=== PATIENT | male | born 1960 | race Caucasian/White ===

== ENCOUNTER 2017-10-24 20:41 | Observation (INO) ==
--- NOTE | 2017-10-24 21:04 | Emergency Department Note ---
Disposition Clinical Impression: Abdominal distention Abdominal pain Qualifiers: Abdominal location: generalized Qualified Code(s): R10.84 - Generalized abdominal pain Disposition: Admitted As Inpatient Condition: Good Referrals: Janae Ann BATCH OR CONTINUOUS STILL OPERATOR [Advanced Practice Nurse] - Forms: ED Satisfaction Letter, Work/School Release Time of Disposition: 23:36 Abdominal Pain HPI - General Chief Complaint: ED Abdominal Pain Stated Complaint: Abd Pain Time Seen by Provider: 10/24/17 20:47 Source: patient Mode of arrival: ambulatory Limitations: no limitations Nursing Notes Reviewed: Yes Vital Signs Reviewed: Yes - History of Present Illness HPI Narrative: Patient is a 57-year-old male with past medical history of recent C. difficile infection that was diagnosed approximately 2-3 weeks ago at outside facility. Patient states that he had a toe removed and had a PICC line for IV antibiotics. It is believed that he got C. difficile secondary to that. When patient was diagnosed, he had diarrhea, generalized abdominal pain. He states that he has been on oral vancomycin for 8 days and has not had any improvement in his diarrhea or abdominal pain. He also complains of worsening generalized abdominal distention. Denies any other fevers, nausea, vomiting, chest pain, shortness of breath. Denies any known blood in his stool. Pain Scale: 10 - Related Data Allergies Allergy/AdvReac Type Severity Reaction Status Date / Time No Known Allergies Allergy Verified 10/24/17 20:45 All systems ED: reviewed and negative except as stated. Constitutional: Denies: fever Cardiovascular: Denies: chest pain Respiratory: Denies: dyspnea Gastrointestinal: Reports: abdominal pain, diarrhea. Denies: nausea, vomiting, constipation, hematemesis, hematochezia Genitourinary: Denies: urgency, dysuria Neurological: Denies: weakness, numbness, paresthesias Abdominal Pain PMH - Past Medical History Medical history: Reports: diabetes, hypertension Male Surgical History: Reports: cholecystectomy, orthopedic, other Psychiatric history: Reports: no psych history - Social History Smoking status: Never smoker Alcohol use: Reports: none Drug use: Reports: none Physical Exam - General Limitations: no limitations General appearance: alert, in no apparent distress - Head Head exam: atraumatic, normocephalic, normal inspection - Eye Eye exam: Present: normal appearance, PERRL, EOMI - ENT ENT exam: normal exam, normal oropharynx, mucous membranes moist - Chest Chest inspection: Present: normal inspection, symmetric chest wall rise - Respiratory Respiratory exam: Present: normal lung sounds bilaterally - Cardiovascular Cardiovascular exam: Present: normal rhythm, tachycardia, normal heart sounds - Abdominal Exam Abdominal exam: Present: soft, tenderness (Generalized abdominal tenderness), distention (Generalized abdominal distention). Absent: guarding, rebound, rigidity, Villegas's sign, tenderness at McBurney's Point - Extremities Exam Extremities exam: Present: normal inspection, full ROM. Absent: tenderness, pedal edema - Neurological Exam Neurological exam: Present: alert, oriented X3 - Psychiatric Psychiatric exam: Present: normal affect, normal mood - Skin Skin exam: Present: warm, dry, intact, normal color Course Course Narrative: Patient is tachycardic, mildly hypertensive. Otherwise, the rest of the vitals within normal limits. Physical exam shows generalized minimal tenderness and distention. Otherwise, lungs clear to auscultation, heart regular rhythm. We will obtain basic blood work, CT abdomen and pelvis, C. difficile testing. Patient is currently failing outpatient treatment of oral vancomycin for C. difficile. Patient also feels unsafe going home. Will admit after workup for further care. 23:34 CBC and BMP not concerning. Urinalysis negative. CT abdomen and pelvis negative for any acute intra-abdominal process. Patient not comfortable with going home. We will give the patient at maintenance fluids, Zofran, admit for further care. Stool C. difficile and culture still pending. Vital Signs Temperature 97.4 F L 10/24/17 20:42 Pulse Rate 104 10/24/17 20:42 Respiratory Rate 16 10/24/17 20:42 Blood Pressure 138/98 10/24/17 20:42 O2 Sat by Pulse Oximetry 99 10/24/17 20:42 Temperature 97.4 F L 10/24/17 20:42 Pulse Rate 103 10/24/17 23:21 Respiratory Rate 16 10/24/17 23:21 Blood Pressure 116/72 10/24/17 23:21 O2 Sat by Pulse Oximetry 96 10/24/17 23:21 Oxygen Delivery Oxygen Delivery Room Air Abdominal Pain - MDM Narrative Medical decision making narrative: Patient is tachycardic, mildly hypertensive. Otherwise, the rest of the vitals within normal limits. Physical exam shows generalized minimal tenderness and distention. Otherwise, lungs clear to auscultation, heart regular rhythm. We will obtain basic blood work, CT abdomen and pelvis, C. difficile testing. Patient is currently failing outpatient treatment of oral vancomycin for C. difficile. Patient also feels unsafe going home. Will admit after workup for further care. 23:34 CBC and BMP not concerning. Urinalysis negative. CT abdomen and pelvis negative for any acute intra-abdominal process. Patient not comfortable with going home. We will give the patient at maintenance fluids, Zofran, admit for further care. Stool C. difficile and culture still pending. - Medical Records Medical records reviewed: Yes I reviewed the patient's medical records. - Lab Data Lab results reviewed: Yes I reviewed the patient's lab results. Result diagrams: 10/24/17 21:16 10/24/17 21:16 Lab Results 10/24/17 10/24/17 10/24/17 Range/Units 21:16 21:16 21:43 WBC 6.1 (4.3-11.1) K/mcL RBC 5.10 (4.19-5.50) M/mcL Hgb 14.6 (12.9-16.9) g/dL Hct 41.9 (37.5-50.1) % MCV 82.2 L (83.0-100.0) fL MCH 28.6 (28.0-33.3) pg MCHC 34.8 (31.6-35.5) g/dL RDW 14.0 (11.5-14.5) % Plt Count 154 (140-400) K/mcL MPV 10.1 (9.4-12.4) fL Immature Gran % 0.3 (0-4) % Seg Neutrophils % 52.0 % Lymphocytes % 29.9 % Monocytes % 10.7 % Eosinophils % 6.4 % Basophils % 0.7 % Neutrophils # 3.2 (1.6-8.9) K/mcL Lymphocytes # 1.8 (0.6-4.6) K/mcL Monocytes # 0.7 (0.0-1.3) K/mcL Eosinophils # 0.4 (0.0-0.6) K/mcL Basophils # 0.0 (0.0-0.2) K/mcL Sodium 133 L (136-145) mEq/L Potassium 3.7 (3.5-5.1) mEq/L Chloride 101 (98-107) mEq/L Carbon Dioxide 23 (23-29) mEq/L BUN 24 H (6-20) mg/dL Creatinine 1.30 (0.70-1.30) mg/dL Est GFR ( Amer) > 60 (> 60) Est GFR (Non-Af Amer) 56 L (> 60) BUN/Creatinine Ratio 18 (6-26) Glucose 301 H (70-105) mg/dL Calculated Osmolality 291 (280-300) Calcium 9.0 (8.6-10.3) mg/dL Total Bilirubin 0.6 (0.3-1.0) mg/dL Direct Bilirubin 0.1 (0.0-0.2) mg/dL Indirect Bilirubin 0.5 (0.0-1.2) mg/dL AST 20 (13-39) Units/L ALT 33 (7-52) Units/L Alkaline Phosphatase 81 (34-104) Units/L Serum Total Protein 7.1 (6.4-8.9) g/dL Albumin 4.2 (3.5-5.7) g/dL Globulin 2.9 (2.4-3.5) g/dL Albumin/Globulin Ratio 1.4 (1.1-2.2) Lipase 42 (11-82) Units/L Urine Color Yellow (Yellow) Urine Clarity Clear (Clear) Urine pH 5.5 (5.0-8.0) pH Units Ur Specific [place] 1.030 H (1.010-1.025) Urine Protein Negative (Neg-Trace) mg/dL Urine Glucose (UA) >=1000 H (Normal) mg/dL Urine Ketones Negative (Negative) mg/dL Urine Blood Negative (Negative) Urine Nitrite Negative (Negative) Urine Bilirubin Negative (Negative) Urine Urobilinogen Normal (Normal) mg/dL Ur Leukocyte Esterase Negative (Negative) Ur Culture Indicated? NO (NO) - Radiology Data Radiology results reviewed: Yes I reviewed the patient's radiology results. Abdomen/Pelvis CT 10/24/17 21:02 IMPRESSION: No definite acute finding in the abdomen or pelvis. Moderate descending and sigmoid colon diverticulosis with no evidence of diverticulitis. There is no mural thickening to suggest acute colitis. D/ / Hilton Covarrubias MD / Hilton Covarrubias MD Interpreting Provider: Hilton Covarrubias MD ana - Joselyn Situation: Demographics, MOA Background: Presenting Complaint, Relevant PMH, Meds, & Allergies Assessment: Vital Signs, Course and respsone to treatment, Exam Concerns, Patient/Family Expectation, Pertinant Lab Results, Outstanding Labs Recommendation: Barrier(s) to disposition, Recommendation based on pending studies, treatments, or consults Joselyn Report Given to: Dr. Poonam Alves Repor Time: 23:36 Attestation Statement - Attestation Attestation: I examined this patient and my medical decision-making was reviewed with the Resident Physician. I agree with the documented findings, disposition and treatment plan as described except to the extent set forth below. Possible worsening C. difficile infection. Plan on admitting. We will start IV fluids, obtain CT scan to rule out toxic megacolon. Disposition is admission to the hospital for further evaluation.
[2017-10-24 21:29] LABS: Basophils % 0.7 %; Eosinophils # 0.4 K/mcL (0.0-0.6); Eosinophils % 6.4 %; Hematocrit 41.9 % (37.5-50.1); Hemoglobin 14.6 g/dL (12.9-16.9); Immature Granulocytes % 0.3 % (0-4); Lymphocytes # 1.8 K/mcL (0.6-4.6); Lymphocytes % 29.9 %; Mean Corpuscular HGB Conc 34.8 g/dL (31.6-35.5); Mean Corpuscular Hemoglobin 28.6 pg (28.0-33.3); Mean Corpuscular Volume 82.2 fL (83.0-100.0); Mean Platelet Volume 10.1 fL (9.4-12.4); Monocytes # 0.7 K/mcL (0.0-1.3); Monocytes % 10.7 %; Neutrophils # 3.2 K/mcL (1.6-8.9); Platelet Count 154 K/mcL (140-400)
[2017-10-24 21:49] LABS: Alanine Aminotransferase 33 Units/L (7-52); Albumin 4.2 g/dL (3.5-5.7); Albumin/Globulin Ratio 1.4 (1.1-2.2); Alkaline Phosphatase 81 Units/L (34-104); Aspartate Amino Transferase 20 Units/L (13-39); BUN/Creatinine Ratio 18 (6-26); Bilirubin,Direct 0.1 mg/dL (0.0-0.2); Bilirubin,Indirect 0.5 mg/dL (0.0-1.2); Bilirubin,Total 0.6 mg/dL (0.3-1.0); Blood Urea Nitrogen 24 mg/dL (6-20); Carbon Dioxide 23 mEq/L (23-29); Chloride 101 mEq/L (98-107); Globulin 2.9 g/dL (2.4-3.5); Glucose 301 mg/dL (70-105); Lipase 42 Units/L (11-82); Osmolality,Calculated 291 (280-300); Potassium 3.7 mEq/L (3.5-5.1); Sodium 133 mEq/L (136-145); Total Protein 7.1 g/dL (6.4-8.9); eGFR For African Americans > 60 (> 60); eGFR For Non-African Americans 56 (> 60)
[2017-10-24 22:01] LABS: Bilirubin,Urine Negative (Negative); Clarity,Urine Clear (Clear); Color,Urine Yellow (Yellow); Glucose,Urine (UA) >=1000 mg/dL (Normal); Ketones,Urine Negative (Negative)
[2017-10-24 22:02] LABS: Blood,Urine Negative (Negative); Leukocyte Esterase,Urine Negative (Negative); Nitrite,Urine Negative (Negative); PH,Urine 5.5 pH Units (5.0-8.0); Protein,Urine Negative (Neg-Trace); Urobilinogen,Urine Normal (Normal)
[2017-10-24] MEDS ORDERED: Ondansetron 4 MG/2 ML VIAL IVP ONE (23:29)
[2017-10-24] MEDS ORDERED: 0.9 % Sodium Chloride 1,000 ML ONE (23:31)
[2017-10-24] MEDS: 0.9 % Sodium Chloride 1,000 ML IVC SCH (23:33)
[2017-10-25] MEDS ORDERED: Naloxone 0.4 MG/ML INJ IVP PRN
[2017-10-25] MEDS ORDERED: *HR* Dextrose 50 % in Water (Syg) 50 ML SYRINGE IVP PRN (00:07)
[2017-10-25] MEDS ORDERED: D5% in Water 1,000 ML IVC PRN (00:07)
[2017-10-25] MEDS ORDERED: Dextrose Gel 15 GM/37.5 ML TUBE PO PRN ×2 (00:07)
--- NOTE | 2017-10-25 00:07 | Internal Med History&Physical ---
Date of Encounter: 10/25/17 Time of Encounter: 00:06 Assessment and Plan (1) Diarrhea Current visit: Yes Status: Acute c.diff until proven otherwise repeat C.diff testing empiric dificid probiotics IVF Qualifiers: Diarrhea type: infectious Qualified Code(s): A09 - Infectious gastroenteritis and colitis, unspecified (2) Abdominal distention Current visit: Yes Status: Acute likely related to etiology causing diarrhea (3) Abdominal pain Current visit: Yes Status: Acute likely related to etiology causing diarrhea Qualifiers: Abdominal location: generalized Qualified Code(s): R10.84 - Generalized abdominal pain (4) HTN (hypertension) Current visit: Yes Status: Acute hold BP med (he also doesn't remember what he uses) due to normal BP Qualifiers: Hypertension type: essential hypertension Qualified Code(s): I10 - Essential (primary) hypertension (5) DMII (diabetes mellitus, type 2) Current visit: Yes Status: Acute hold oral agent. ISS for now Qualifiers: Qualified Code(s): E11.9 - Type 2 diabetes mellitus without complications Internal Medicine - H&P: HPI Chief complaint: abdo pain , diarrhea History of present illness: Mr. Mandujano is a 57 year old male with hx of recently treated C.diff who presents with Abdo pain, persistent diarrhea after completing a course of PO vanco - admitted with suspicion for refractory c.diff He has hx of HTN (does not remember meds) and DMII on glipizide. Events started 4 months ago where it was reported he had a left big toe infection that was treated surgery at [facility]. He later had a PICC and placed on 2 -3 months of IV vanco - likely for osteomyelitis therapy ? based on his treatment description. Approx 4 weeks ago, he was hospitalized at [facility] for diarrhea where he was dx with C.diff, initially got flagyl but was discharged on PO vanco - likely 125 QID which he completed. Since completion of therapy, he is experiencing refractory diarrhea up to 5 x daily, watery. Food making it worse. Associated with radames-umbilical, lower abdo cramps. CT/CT abd pelvis w iv no oral IMPRESSION: No definite acute finding in the abdomen or pelvis. Moderate descending and sigmoid colon diverticulosis with no evidence of diverticulitis. There is no mural thickening to suggest acute colitis. Past Med Surg Social Fam HX - Past Medical History Medical history: diabetes, hypertension Psychiatric history: no psych history - Past Surgical History Surgical History: other (left toe surgery) - Social History Smoking Status: Never smoker Alcohol use: none Drug use: none - Additional Family History Additional family history: HTN Internal Medicine - H&P: Meds 3 Allergy/AdvReac Type Severity Reaction Status Date / Time No Known Allergies Allergy Verified 10/24/17 20:45 All Systems PM: A 10-system review of systems was performed and is negative for pertinent findings except as documented above in the HPI. Review of systems: ROS 14 point review of systems reviewed as best as possible given presentation. Pertinent positive or negative as per HPI or otherwise reviewed as negative - Constitutional Vitals: Temp Pulse Resp BP Pulse Ox 97.4 F L 103 16 116/72 96 10/24/17 20:42 10/24/17 23:21 10/24/17 23:21 10/24/17 23:21 10/24/17 23:21 Exam: General - AAO x 3 Psych - Appropriate affect/speech. No agitation Eyes - IWONA. Eye lids intact. No scleral icterus Heart - Sinus. RRR. S1 and S2 present. No added HS/murmurs appreciated. No elevated JVD appreciated. Lung - Adequate air entry b/l, No crackles/wheezes appreciated GI - Soft, lower abdo bloating, discomfort, No G/R. No hepatosplenomegaly/ ascites. BS+ - No CVA/suprapubic tenderness or palpable bladder distension Skin - Intact. No rash/petechiae/ecchymosis. Warm extremities Internal Med - H&P Results - Labs CBC & Chem 7: 10/24/17 21:16 10/24/17 21:16
[2017-10-25] MEDS: Fidaxomicin 200 MG TABLET PO SCH ×2 (00:54→08:21)
[2017-10-25] MEDS: Lactobacillus 1 EACH CAP.SPRINK PO SCH ×3 (02:37→22:02)
[2017-10-25 04:41] LABS: Basophils # 0.1 K/mcL (0.0-0.2); Eosinophils # 0.4 K/mcL (0.0-0.6); Eosinophils % 8.3 %; Hematocrit 38.3 % (37.5-50.1); Hemoglobin 13.3 g/dL (12.9-16.9); Immature Granulocytes % 0.4 % (0-4); Lymphocytes # 1.9 K/mcL (0.6-4.6); Lymphocytes % 37.4 %; Mean Corpuscular HGB Conc 34.7 g/dL (31.6-35.5); Mean Corpuscular Hemoglobin 28.4 pg (28.0-33.3); Mean Corpuscular Volume 81.7 fL (83.0-100.0); Mean Platelet Volume 10.5 fL (9.4-12.4); Monocytes # 0.6 K/mcL (0.0-1.3); Monocytes % 10.9 %; Neutrophils # 2.2 K/mcL (1.6-8.9); Platelet Count 137 K/mcL (140-400); Red Blood Count 4.69 M/mcL (4.19-5.50); Red Cell Distribution Width 13.9 % (11.5-14.5)
[2017-10-25] MEDS: Insulin LISPRO 300 UNITS/3 ML VIAL SQ SCH ×3 (08:21→17:42)
--- NOTE | 2017-10-25 09:13 | Event Note ---
Date of Encounter: 10/25/17 Time of Encounter: 08:30 Seen and examined at bedside. Patient is a 18, information obtained from chart review and patient report. Says she was recently discharged from [facility] where he was treated for C. difficile. He has been home for approximately one month and is complaining of persistent abdominal pain, distention and loose stool. Abdominal pain worse with eating and worse with not eating. No loose stools since admission. 1. C. difficile: Patient reports recently diagnosed with C. difficile at [facility], on oral vanco at home. Symptomatic with abdominal pain and loose stools. No patient has not had bowel movement since presentation. Continue empiric deficits, probiotics. Stool for C. difficile pending. 2. Abdominal pain: With associated distention/bloating. Abdomen/pelvis CT with sigmoid diverticulosis, no evidence of diverticulitis, no mural thickening to suggest acute colitis; otherwise nonacute. Patient reports significant abdominal bloating, worse than baseline. KUB pending. 3. Left foot osteomyelitis; details unclear but apparently was admitted at [facility] for left foot surgery and was on long-term IV ATB. Left foot appears to have mild cellulitic appearance. Lfet foot x-ray pending. [facility] records requested
[2017-10-25 09:50] LABS: BUN/Creatinine Ratio 19 (6-26); Blood Urea Nitrogen 21 mg/dL (6-20); Calcium 8.9 mg/dL (8.6-10.3); Carbon Dioxide 24 mEq/L (23-29); Chloride 103 mEq/L (98-107); Glucose 260 mg/dL (70-105); Magnesium 1.8 mg/dL (1.6-2.6); Osmolality,Calculated 290 (280-300); Potassium 3.9 mEq/L (3.5-5.1); Sodium 134 mEq/L (136-145); eGFR For African Americans > 60 (> 60); eGFR For Non-African Americans > 60 (> 60)
[2017-10-25] MEDS: 0.9 % Sodium Chloride 1,000 ML IVC SCH (14:45)
[2017-10-25] MEDS: *HR* Heparin 5,000 UNIT/ML VIAL SQ SCH ×2 (14:46→22:03)
[2017-10-25] MEDS: Vancomycin Oral Soln 250 MG/5 ML UDC PO SCH ×2 (17:41→22:01)
[2017-10-25] MEDS ORDERED: Insulin LISPRO 300 UNITS/3 ML VIAL SQ SCH (21:00)
[2017-10-25] MEDS: Gabapentin 400 MG CAPSULE PO SCH (23:19)
[2017-10-25] MEDS: *HR* OxyCODONE/APAP 10/325 TABLET PO SCH (23:19)
[2017-10-26] MEDS: 0.9 % Sodium Chloride 1,000 ML IVC SCH ×2 (02:11→02:12)
[2017-10-26] MEDS: *HR* Heparin 5,000 UNIT/ML VIAL SQ SCH ×2 (06:20→14:30)
[2017-10-26] MEDS: Insulin LISPRO 300 UNITS/3 ML VIAL SQ SCH ×3 (08:08→17:07)
[2017-10-26] MEDS: Gabapentin 400 MG CAPSULE PO SCH ×3 (08:09→17:08)
[2017-10-26] MEDS: Vancomycin Oral Soln 250 MG/5 ML UDC PO SCH ×2 (08:09→14:31)
[2017-10-26] MEDS: Lactobacillus 1 EACH CAP.SPRINK PO SCH (08:10)
[2017-10-26] MEDS: *HR* OxyCODONE/APAP 10/325 TABLET PO SCH (08:10)
--- NOTE | 2017-10-26 13:38 | Discharge Summary ---
Date of Encounter: 10/26/17 Time of Encounter: 13:32 - Discharge Diagnosis (1) C. difficile diarrhea Priority: Primary Status: Acute Comments: Recurrent. Patient reports 2 episodes of C. difficile and 08/2017 and again 2017. Most recently treated with oral vancomycin after discharge from [facility]. Presents with recurrent abdominal pain and loose stool. Afebrile, no elevated WBC. Lactic acid normal. ABD CT with diverticulosis, no evidence of diverticulitis or acute colitis. Of note, patient reports that loose stool comes and goes; says he may have 4-5 loose stools in a day and then go 1 or 2 days without loose stool. Given recent significant history of C. difficile, continue to treat empirically with oral vancomycin. Stop home PPI. He may benefit from dificid and/or fecal transplant. (2) Osteomyelitis Priority: Primary Status: Acute Comments: per hx. Details unclear but he apparenyl hours with podiatry at [facility]. 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 [facility] records indicates he was recommended to have an amputation and patient declined. S/p I&D [facility] in 07/[address] Vieira followed by long-term IV ATB. Was evaluated at [facility] 10/05/2017 by podiatry who did not recommend further ATB's or surgical intervention as patient had stable ulcer on medial aspect of left hallux. Left foot with cellulitic appearance on admission. 10/25/17 MRI discerning for osteomyelitis first metatarsal, erosive changes involving first MTP compatible with Pinch and septic osteo-arthritis and diffuse subcutaneous edema compatible with cellulitis. Afebrile, no elevated WBC. Asymptomatic with cellulitic appearance ; worsening erythema and drainage from admission. 07/2017 cultures with Pseudomonas and Proteus; both sensitive to Zosyn. Start Zosyn, plan to transfer to [facility] once bed available. Qualifiers: Osteomyelitis type: subacute Osteomyelitis location: foot Laterality: left Qualified Code(s): M86.272 - Subacute osteomyelitis, left ankle and foot (3) DMII (diabetes mellitus, type 2) Priority: Secondary Status: Chronic Comments: History uncontrolled diabetes. 05/2017 Hgb A1c 10.4%. Likely secondary to dietary noncompliance. Continue home medication regimen. Qualifiers: Diabetes mellitus complication status: without complication Diabetes mellitus correction insulin use: with correction use Qualified Code(s): E11.9 - Type 2 diabetes mellitus without complications; Z79.4 - shelter (current) use of insulin; Z79.4 - shelter (current) use of insulin; Z79.4 - bed bug exterminator ( current) use of insulin; Z79.4 - bed bug exterminator (current) use of insulin (4) HTN (hypertension) Priority: Secondary Status: Chronic Comments: per hx. controlled. Continue home BP medications Qualifiers: Hypertension type: essential hypertension Qualified Code(s): I10 - Essential (primary) hypertension - Discharge Medications Prescriptions: Piperacillin/Tazobactam [Zosyn] 3.375 gm IVPB Q8HR #30 vial Home Medications: Gabapentin [Neurontin] 800 mg PO QID 10/25/17 [History] Insulin Glargine,Hum.rec.anlog [Lantus Solostar] 25 unit SQ Q12H 10/25/17 [ History] Lisinopril [Zestril] 5 mg PO BID 10/25/17 [History] Oxycodone HCl/Acetaminophen [Percocet 10-325 mg Tablet] 1 tab PO BID 10/25/17 [ History] Zolpidem [Ambien] 10 mg PO HS 10/25/17 [History] Dicyclomine [Bentyl] 20 mg PO Q6H PRN capsule 10/26/17 [Rx] Heparin 5,000 unit SQ Q8HCO vial 10/26/17 [Rx] Lactobacillus [Culturelle] 1 each PO BID cap.sprink 10/26/17 [Rx] Piperacillin/Tazobactam [Zosyn] 3.375 gm IVPB Q8HR #30 vial 10/26/17 [Rx] Vancomycin Oral Soln [Vancocin] 125 mg PO QID udc 10/26/17 [Rx] Allergies/Adverse Reactions: 3 Allergy/AdvReac Type Severity Reaction Status Date / Time No Known Allergies Allergy Verified 10/24/17 20:45 Procedures/tests Complete & Pending: Procedures Performed prior 72 hours Category Date Time Status MR foot LT wo/w con [MR] Stat MRI 10/25/17 12:07 Completed Date of admission: 10/24/17 23:51 Primary care physician: Estefania Xie, Discharging clinician: Monik Lindo Anticipated date of discharge: 10/26/17 - Patient Status Disposition: Transfer Other Condition: Good Functional capacity at discharge: uses cane/walker Overall status at discharge: patient is not back to baseline - Discharge Instructions Follow Up With: Estefania Xie MD [Primary Care Provider] - - Diet and Activity Activity: as per physical therapy Diet: diabetic diet Interval History: Seen and examined at bedside. Patient still with complaint of abdominal pain, he has not had any stool since arrival. Abdominal pain is constant and worse with eating however he says it is worse if he does not eat as well. Discuss MRI findings of left foot and concerning for osteomyelitis. Patient reports to now to second toe on left foot fell off a couple weeks ago and has progressively gotten worse. Reports she expressed a large amount of purulent material from it yesterday. He is agreeable to transfer to [facility]. Discussed with [facility] transfer center and 07/2017 wound cultures with Proteus and Pseudomonas , sensitive to Zosyn. Patient has been accepted to [facility] and will be transferred once bed is available. Hospital course: See assessment and plan for hospital course - Time Spent with Patient Total time spent providing and/or coordinating discharge services: - Constitutional Vitals: Temp Pulse Resp BP Pulse Ox 98.1 F 97 18 131/84 96 10/26/17 11:11 10/26/17 11:11 10/26/17 11:11 10/26/17 11:11 10/26/17 11:11 General appearance: Present: A&O X 3, morbidly obese - Head Head exam: Present: atraumatic, normocephalic - Eye Eye exam: Present: PERRL, conjuntiva pink, sclera anicteric Pupils: Present: PERRL - Neck Neck exam general surgery: Present: supple, trachea midline. Absent: lymphadenopathy - Respiratory Respiratory exam: Present: CTAB. Absent: accessory muscle use, rales, rhonchi, wheezes - Cardiovascular Cardiovascular exam: Present: RRR, +S1, +S2. Absent: diastolic murmur, gallop, rubs, systolic murmur - GI/Abdominal GI/Abdominal exam: Present: normal bowel sounds, soft, tenderness, no peritoneal signs. Absent: distended - Extremities Exam Extremities exam: Present: warm, radial pulses palpable and symmetrical. Absent : calf tenderness, cyanotic, pedal edema - Expanded Lower Extremities Exam Foot/Toe exam: Present: amputation, swelling, tenderness - Neurological Exam Neurological exam: Present: CN II-XII intact, oriented X3, no focal deficits. Absent: pronater drift, facial droop, speech deficit - Skin Skin exam: Present: dry, intact
[2017-10-26 15:18] VITALS: BP 146/93
== END 2017-10-26 18:45 | disposition other institution (70) ==
LOC: 3ANU 20:41 → EMEROO 20:41 → 3ANU 10-25 00:05
PROVIDERS: ADMIT Internal Medicine Hematology & Oncology; ATTEND Internal Medicine

== ENCOUNTER 2020-07-30 10:22 | Inpatient (IN) ==
[2020-07-30 10:59] LABS: Basophils # 0.1 K/mcL (0.0-0.2); Basophils % 0.7 %; Eosinophils # 0.4 K/mcL (0.0-0.6); Eosinophils % 5.1 %; Hematocrit 38.7 % (37.5-50.1); Hemoglobin 12.6 g/dL (12.9-16.9); Immature Granulocytes % 0.4 % (0-4); Lymphocytes # 1.4 K/mcL (0.6-4.6); Lymphocytes % 20.1 %; Mean Corpuscular HGB Conc 32.6 g/dL (31.6-35.5); Mean Corpuscular Hemoglobin 27.4 pg (28.0-33.3); Mean Corpuscular Volume 84.1 fL (83.0-100.0); Mean Platelet Volume 9.8 fL (9.4-12.4); Monocytes # 0.7 K/mcL (0.0-1.3); Monocytes % 9.3 %; Neutrophils # 4.5 K/mcL (1.6-8.9); Platelet Count 245 K/mcL (140-400); Red Cell Distribution Width 14.8 % (11.5-14.5); Segmented Neutrophils % 64.4 %
[2020-07-30] MEDS ORDERED: 0.9 % Sodium Chloride 1,000 ML IVC ONE (11:07)
[2020-07-30 11:16] LABS: BUN/Creatinine Ratio 14 (6-26); Blood Urea Nitrogen 18 mg/dL (8-23); C-Reactive Protein 46 mg/L (Less than 10); Calcium 9.6 mg/dL (8.6-10.3); Carbon Dioxide 27 mEq/L (23-29); Chloride 98 mEq/L (98-107); Glucose 350 mg/dL (70-105); Osmolality,Calculated 292 (280-300); Potassium 4.2 mEq/L (3.5-5.1); Sodium 133 mEq/L (136-145); eGFR For African Americans > 60 (> 60); eGFR For Non-African Americans 55 (> 60)
[2020-07-30] MEDS ORDERED: Piperacillin/Tazobactam 3.375 GM in 0.9 % Sodium Chloride Mini Bag 100 ML IVPB ONE (11:38)
[2020-07-30] MEDS ORDERED: *HR* FentaNYL (PF) 100 MCG/2 ML VIAL IVP ONE (11:45)
[2020-07-30] MEDS ORDERED: Vancomycin 1,500 MG/265 ML IV.SOLN IVPB ONE (12:00)
[2020-07-30] MEDS ORDERED: Ondansetron 4 MG/2 ML VIAL IVP PRN (12:23)
[2020-07-30] MEDS ORDERED: Dextrose Gel 15 GM/37.5 ML TUBE PO PRN ×2 (13:05)
[2020-07-30] MEDS ORDERED: *HR* Dextrose 50 % in Water (Vial) 50 ML VIAL IVP PRN (13:05)
[2020-07-30] MEDS ORDERED: D5% in Water 1,000 ML IVC PRN (13:05)
[2020-07-30] MEDS: Acetaminophen 325 MG TABLET PO PRN (15:23)
[2020-07-30] MEDS: Gabapentin 300 MG CAPSULE PO SCH ×2 (15:23→20:47)
[2020-07-30] MEDS: *HR* OxyCODONE/APAP 10/325 TABLET PO PRN ×2 (16:17→21:05)
[2020-07-30] MEDS: *HR* Heparin 5,000 UNIT/ML VIAL SQ SCH (16:17)
[2020-07-30] MEDS: Insulin LISPRO 300 UNITS/3 ML VIAL SQ SCH ×2 (16:34→21:08)
[2020-07-30] MEDS: Piperacillin/Tazobactam 3.375 GM in 0.9 % Sodium Chloride Mini Bag 100 ML IVPB SCH (18:47)
[2020-07-31] MEDS: Vancomycin 1,500 MG/265 ML IV.SOLN IVPB SCH ×2 (01:32→12:11)
[2020-07-31] MEDS: *HR* OxyCODONE/APAP 10/325 TABLET PO PRN ×4 (01:40→22:26)
[2020-07-31 02:38] LABS: Hematocrit 34.4 % (37.5-50.1); Hemoglobin 11.1 g/dL (12.9-16.9); Mean Corpuscular HGB Conc 32.3 g/dL (31.6-35.5); Mean Corpuscular Hemoglobin 27.6 pg (28.0-33.3); Mean Corpuscular Volume 85.6 fL (83.0-100.0); Mean Platelet Volume 10.1 fL (9.4-12.4); Platelet Count 198 K/mcL (140-400); Red Blood Count 4.02 M/mcL (4.19-5.50); Red Cell Distribution Width 14.6 % (11.5-14.5); White Blood Count 4.4 K/mcL (4.3-11.1)
[2020-07-31 02:52] LABS: BUN/Creatinine Ratio 15 (6-26); Blood Urea Nitrogen 19 mg/dL (8-23); Calcium 8.6 mg/dL (8.6-10.3); Carbon Dioxide 27 mEq/L (23-29); Chloride 100 mEq/L (98-107); Glucose 314 mg/dL (70-105); Magnesium 1.6 mg/dL (1.6-2.6); Osmolality,Calculated 290 (280-300); Potassium 4.1 mEq/L (3.5-5.1); Sodium 133 mEq/L (136-145); eGFR For African Americans > 60 (> 60); eGFR For Non-African Americans 59 (> 60)
[2020-07-31] MEDS: Piperacillin/Tazobactam 3.375 GM in 0.9 % Sodium Chloride Mini Bag 100 ML IVPB SCH ×2 (04:47→10:45)
[2020-07-31] MEDS: Gabapentin 300 MG CAPSULE PO SCH ×4 (08:17→22:26)
[2020-07-31] MEDS: *HR* Heparin 5,000 UNIT/ML VIAL SQ SCH ×2 (08:18→17:51)
[2020-07-31] MEDS: lisinopriL 5 MG TABLET PO SCH (08:18)
[2020-07-31] MEDS: Insulin LISPRO 300 UNITS/3 ML VIAL SQ SCH ×4 (08:27→22:31)
[2020-07-31] MEDS: Sennosides/Docusate Sodium TABLET PO SCH ×2 (10:45→22:26)
[2020-08-01] MEDS: Vancomycin 1,500 MG/265 ML IV.SOLN IVPB SCH ×2 (01:00→11:08)
[2020-08-01] MEDS: *HR* OxyCODONE/APAP 10/325 TABLET PO PRN ×5 (02:36→22:26)
[2020-08-01] MEDS: *HR* Heparin 5,000 UNIT/ML VIAL SQ SCH ×2 (06:44→17:15)
[2020-08-01] MEDS: Sennosides/Docusate Sodium TABLET PO SCH ×2 (08:34→21:06)
[2020-08-01] MEDS: Gabapentin 300 MG CAPSULE PO SCH ×4 (08:34→21:06)
[2020-08-01] MEDS: lisinopriL 5 MG TABLET PO SCH (08:34)
[2020-08-01] MEDS: Insulin LISPRO 300 UNITS/3 ML VIAL SQ SCH ×4 (08:36→21:06)
[2020-08-01] MEDS: Acetaminophen 325 MG TABLET PO PRN (21:06)
[2020-08-02] MEDS: Vancomycin 1,500 MG/265 ML IV.SOLN IVPB SCH (00:25)
[2020-08-02] MEDS: *HR* Heparin 5,000 UNIT/ML VIAL SQ SCH ×2 (06:13→17:16)
[2020-08-02] MEDS: *HR* OxyCODONE/APAP 10/325 TABLET PO PRN ×4 (06:17→23:49)
[2020-08-02] MEDS: Gabapentin 300 MG CAPSULE PO SCH ×4 (07:40→20:07)
[2020-08-02] MEDS: Sennosides/Docusate Sodium TABLET PO SCH ×2 (07:40→20:07)
[2020-08-02] MEDS: lisinopriL 5 MG TABLET PO SCH (07:40)
[2020-08-02] MEDS: Insulin LISPRO 300 UNITS/3 ML VIAL SQ SCH ×4 (07:41→20:07)
[2020-08-02] MEDS ORDERED: methylPREDNISolone 125 MG/2 ML VIAL IVP ONE (10:59)
[2020-08-02 12:48] LABS: BUN/Creatinine Ratio 15 (6-26); Blood Urea Nitrogen 20 mg/dL (8-23); Carbon Dioxide 29 mEq/L (23-29); Chloride 99 mEq/L (98-107); Glucose 346 mg/dL (70-105); Osmolality,Calculated 292 (280-300); Potassium 4.6 mEq/L (3.5-5.1); Sodium 133 mEq/L (136-145); eGFR For African Americans > 60 (> 60); eGFR For Non-African Americans 53 (> 60)
[2020-08-03 01:23] LABS: BUN/Creatinine Ratio 19 (6-26); Blood Urea Nitrogen 25 mg/dL (8-23); Calcium 9.2 mg/dL (8.6-10.3); Carbon Dioxide 24 mEq/L (23-29); Chloride 99 mEq/L (98-107); Glucose 351 mg/dL (70-105); Osmolality,Calculated 290 (280-300); Potassium 4.6 mEq/L (3.5-5.1); Sodium 131 mEq/L (136-145); eGFR For African Americans > 60 (> 60); eGFR For Non-African Americans 54 (> 60)
[2020-08-03] MEDS: *HR* Heparin 5,000 UNIT/ML VIAL SQ SCH ×2 (05:48→16:20)
[2020-08-03] MEDS: *HR* OxyCODONE/APAP 10/325 TABLET PO PRN ×3 (05:48→18:49)
[2020-08-03] MEDS: lisinopriL 5 MG TABLET PO SCH (08:12)
[2020-08-03] MEDS: Gabapentin 300 MG CAPSULE PO SCH ×4 (08:12→20:00)
[2020-08-03] MEDS: Sennosides/Docusate Sodium TABLET PO SCH ×2 (08:12→20:00)
[2020-08-03] MEDS: Insulin LISPRO 300 UNITS/3 ML VIAL SQ SCH ×4 (08:16→20:00)
[2020-08-03] MEDS ORDERED: MethylPREDNISolone 40 MG/ML VIAL IVP ONE (13:28)
[2020-08-04] MEDS: *HR* OxyCODONE/APAP 10/325 TABLET PO PRN ×5 (02:18→21:52)
[2020-08-04] MEDS: *HR* Heparin 5,000 UNIT/ML VIAL SQ SCH ×2 (05:22→17:11)
[2020-08-04] MEDS: Sennosides/Docusate Sodium TABLET PO SCH ×2 (08:35→20:28)
[2020-08-04] MEDS: Gabapentin 300 MG CAPSULE PO SCH ×4 (08:35→20:28)
[2020-08-04] MEDS: lisinopriL 5 MG TABLET PO SCH (08:35)
[2020-08-04] MEDS: Insulin LISPRO 300 UNITS/3 ML VIAL SQ SCH ×4 (08:36→20:29)
[2020-08-04 09:41] LABS: BUN/Creatinine Ratio 24 (6-26); Blood Urea Nitrogen 35 mg/dL (8-23); Calcium 9.6 mg/dL (8.6-10.3); Carbon Dioxide 28 mEq/L (23-29); Chloride 100 mEq/L (98-107); Glucose 236 mg/dL (70-105); Magnesium 1.9 mg/dL (1.6-2.6); Osmolality,Calculated 298 (280-300); Potassium 3.9 mEq/L (3.5-5.1); Sodium 136 mEq/L (136-145); eGFR For African Americans > 60 (> 60); eGFR For Non-African Americans 50 (> 60)
[2020-08-04 09:48] LABS: Hematocrit 41.2 % (37.5-50.1); Hemoglobin 13.2 g/dL (12.9-16.9); Mean Corpuscular Hemoglobin 27.1 pg (28.0-33.3); Mean Corpuscular Volume 84.6 fL (83.0-100.0); Mean Platelet Volume 10.3 fL (9.4-12.4); Platelet Count 287 K/mcL (140-400); Red Blood Count 4.87 M/mcL (4.19-5.50); Red Cell Distribution Width 14.7 % (11.5-14.5); White Blood Count 7.2 K/mcL (4.3-11.1)
[2020-08-05 01:23] LABS: Hematocrit 38.3 % (37.5-50.1); Hemoglobin 12.7 g/dL (12.9-16.9); Mean Corpuscular HGB Conc 33.2 g/dL (31.6-35.5); Mean Corpuscular Hemoglobin 28.4 pg (28.0-33.3); Mean Corpuscular Volume 85.7 fL (83.0-100.0); Mean Platelet Volume 10.1 fL (9.4-12.4); Platelet Count 237 K/mcL (140-400); Red Blood Count 4.47 M/mcL (4.19-5.50); Red Cell Distribution Width 14.8 % (11.5-14.5); White Blood Count 5.7 K/mcL (4.3-11.1)
[2020-08-05 01:46] LABS: Calcium 8.8 mg/dL (8.6-10.3); Potassium 4.2 mEq/L (3.5-5.1)
[2020-08-05] MEDS: *HR* Heparin 5,000 UNIT/ML VIAL SQ SCH (05:16)
[2020-08-05] MEDS: *HR* OxyCODONE/APAP 10/325 TABLET PO PRN ×3 (05:16→14:17)
[2020-08-05] MEDS: Sennosides/Docusate Sodium TABLET PO SCH (08:17)
[2020-08-05] MEDS: Insulin LISPRO 300 UNITS/3 ML VIAL SQ SCH ×2 (08:17→12:00)
[2020-08-05] MEDS: Gabapentin 300 MG CAPSULE PO SCH ×2 (08:17→12:00)
[2020-08-05] MEDS: Acetaminophen 325 MG TABLET PO PRN (08:23)
[2020-08-05] MEDS ORDERED: Linezolid 600 MG TABLET PO SCH (11:45)
[2020-08-05] MEDS ORDERED: levoFLOXacin 750 MG TABLET PO SCH (11:45)
[2020-08-05 15:31] VITALS: BP 102/62
== END 2020-08-05 17:45 | disposition home or self-care (01) | DRG 565 ==
LOC: EMEROOARM 10:22 → 3NENU 10:22 → SUATTDRO 13:55 → 3NENU 14:38
PROVIDERS: ADMIT Internal Medicine; ATTEND Internal Medicine

== ENCOUNTER 2022-04-12 16:38 | Inpatient (IN) ==
[2022-04-12] MEDS ORDERED: Ondansetron 4 MG/2 ML VIAL IVP PRN (21:48)
[2022-04-12] MEDS ORDERED: Naloxone 0.4 MG/ML INJ IVP PRN (21:48)
[2022-04-12] MEDS ORDERED: D5% in Water 1,000 ML IVC PRN (21:53)
[2022-04-12] MEDS ORDERED: *HR* Dextrose 50 % in Water (Syg) 50 ML SYRINGE IVP PRN (21:53)
[2022-04-12] MEDS ORDERED: Dextrose Gel 15 GM/37.5 ML TUBE PO PRN ×2 (21:53)
[2022-04-12 22:59] LABS: Troponin I < 0.03 ng/mL (< 0.04)
[2022-04-12] MEDS: Cefepime HCl 2,000 MG in 0.9 % Sodium Chloride Mini Bag 100 ML IVPB SCH (23:22)
[2022-04-13 00:48] LABS: Bilirubin,Urine Negative (Negative); Blood,Urine Negative (Negative); Clarity,Urine Clear (Clear); Color,Urine Light-Yellow (Yellow); Glucose,Urine (UA) Normal (Normal); Ketones,Urine Negative (Negative); Leukocyte Esterase,Urine Negative (Negative); Nitrite,Urine Negative (Negative); Protein,Urine Negative (Neg-Trace); Specific Gravity,Urine 1.015 (1.010-1.025); Urobilinogen,Urine Normal (Normal)
[2022-04-13 01:52] LABS: Estimated Average Glucose 169 mg/dl; Hemoglobin A1C 7.5 %
[2022-04-13 02:13] LABS: C-Reactive Protein 148 mg/L (Less than 10)
[2022-04-13 04:00] LABS: Basophils % 0.4 %; Eosinophils # 0.4 K/mcL (0.0-0.6); Eosinophils % 7.5 %; Hematocrit 34.1 % (37.5-50.1); Hemoglobin 11.6 g/dL (12.9-16.9); Immature Granulocytes % 0.4 % (0-4); Lymphocytes # 0.5 K/mcL (0.6-4.6); Lymphocytes % 11.3 %; Mean Corpuscular Volume 88.1 fL (83.0-100.0); Monocytes # 0.5 K/mcL (0.0-1.3); Monocytes % 9.8 %; Neutrophils # 3.4 K/mcL (1.6-8.9); Platelet Count 186 K/mcL (140-400); Red Blood Count 3.87 M/mcL (4.19-5.50); Red Cell Distribution Width 14.1 % (11.5-14.5); Segmented Neutrophils % 70.6 %; White Blood Count 4.8 K/mcL (4.3-11.1)
[2022-04-13 04:02] LABS: INR 1.4; Prothrombin Time 15.5 Seconds (9.4-12.1)
[2022-04-13 04:15] LABS: Albumin 3.6 g/dL (3.5-5.7); Albumin/Globulin Ratio 1.1 (1.1-2.2); Bilirubin,Indirect 0.5 mg/dL (0.0-1.0); Bilirubin,Total 0.5 mg/dL (0.3-1.0); Globulin 3.4 g/dL (2.4-3.5)
[2022-04-13 04:19] LABS: BUN/Creatinine Ratio 14 (6-26); Blood Urea Nitrogen 18 mg/dL (8-23); Calcium 9.3 mg/dL (8.6-10.3); Carbon Dioxide 28 mEq/L (23-29); Chloride 98 mEq/L (98-107); Chol/HDL Ratio 4.2 (0-4.9); Cholesterol 134 mg/dL (< 200); Glucose 241 mg/dL (70-105); HDL Cholesterol 32 mg/dL (40-59); LDL Cholesterol,Calculated 62 mg/dL (< 100); Magnesium 1.7 mg/dL (1.6-2.6); Osmolality,Calculated 288 (280-300); Phosphorous 3.1 mg/dL (2.7-4.5); Potassium 4.1 mEq/L (3.5-5.1); Sodium 134 mEq/L (136-145); Triglycerides 199 mg/dL (< 150); eGFR For African Americans > 60 (> 60); eGFR For Non-African Americans 54 (> 60)
[2022-04-13 04:27] LABS: Thyroid Stimulating Hormone 3.718 mcIU/mL (0.340-5.600)
[2022-04-13] MEDS: 0.9 % Sodium Chloride 1,000 ML IVC SCH ×2 (05:36→20:53)
[2022-04-13] MEDS: *HR* OxyCODONE Immed Rel 5 MG TABLET PO PRN ×3 (05:36→22:32)
[2022-04-13] MEDS: MetroNIDAZOLE 500 MG/100 ML 500 MG/100 ML BAG IVPB SCH ×2 (09:04→15:24)
[2022-04-13] MEDS: Insulin LISPRO 300 UNITS/3 ML VIAL SUBQ SCH ×3 (09:04→17:21)
[2022-04-13] MEDS: Cefepime HCl 2,000 MG in 0.9 % Sodium Chloride Mini Bag 100 ML IVPB SCH ×2 (09:05→15:23)
[2022-04-13] MEDS ORDERED: Morphine Sulfate 2 MG/ML SYRINGE IVP ONE (10:19)
[2022-04-13] MEDS ORDERED: *HR* FentaNYL (PF) 100 MCG/2 ML VIAL IVP PRN (10:22)
[2022-04-13] MEDS ORDERED: *HR* Midazolam HCl 2 MG/2 ML VIAL ONE (12:15)
[2022-04-13] MEDS ORDERED: *HR* Propofol 200 MG/20 ML VIAL IVP ONE (12:15)
[2022-04-13] MEDS ORDERED: *HR* FentaNYL (PF) 100 MCG/2 ML VIAL ONE (12:15)
[2022-04-13] MEDS ORDERED: Ondansetron 4 MG/2 ML VIAL ONE (12:16)
[2022-04-13] MEDS ORDERED: Lidocaine -MPF 2% 5 ML VIAL ONE (12:16)
[2022-04-13] MEDS: Neosporin OINT 15 GM TUBE TP SCH (12:28)
[2022-04-13] MEDS ORDERED: Bupivacaine-MPF 0.25% 10 ML VIAL ONE (12:54)
[2022-04-13] MEDS ORDERED: Albuterol 2.5 MG/3 ML NEBULIZER IH PRN (13:12)
[2022-04-13] MEDS ORDERED: *HR* Meperidine 25 MG/ML SYRINGE IVP PRN (13:12)
[2022-04-13] MEDS ORDERED: flumazeniL 0.5 MG/5 ML VIAL IVP PRN (13:12)
[2022-04-13] MEDS ORDERED: Ondansetron 4 MG/2 ML VIAL IVP PRN (13:12)
[2022-04-13] MEDS ORDERED: *HR* Labetalol 20 MG/4 ML SYRINGE IVP PRN (13:12)
[2022-04-13] MEDS ORDERED: Ipratropium Neb 0.5 MG NEBULIZER IH PRN (13:12)
[2022-04-13] MEDS ORDERED: *HR* OxyCODONE Immed Rel 5 MG TABLET PO PRN (13:12)
[2022-04-13] MEDS ORDERED: *HR* HYDROmorphone PF 0.5 MG/0.5 ML SYRINGE IVP PRN (13:12)
[2022-04-13] MEDS: Gabapentin 400 MG CAPSULE PO SCH (20:50)
[2022-04-13] MEDS ORDERED: Insulin DETEMIR 100 UNIT/ML X5UNITS SUBQ SCH (21:00)
[2022-04-14] MEDS: MetroNIDAZOLE 500 MG/100 ML 500 MG/100 ML BAG IVPB SCH ×2 (00:22→08:24)
[2022-04-14] MEDS: Cefepime HCl 2,000 MG in 0.9 % Sodium Chloride Mini Bag 100 ML IVPB SCH ×3 (00:22→16:21)
[2022-04-14] MEDS: Insulin LISPRO 300 UNITS/3 ML VIAL SUBQ SCH ×4 (00:59→17:53)
[2022-04-14] MEDS: *HR* OxyCODONE Immed Rel 5 MG TABLET PO PRN ×2 (04:24→08:46)
[2022-04-14 06:14] LABS: Basophils % 0.4 %; Eosinophils # 0.2 K/mcL (0.0-0.6); Eosinophils % 3.6 %; Hematocrit 29.3 % (37.5-50.1); Hemoglobin 10.4 g/dL (12.9-16.9); Immature Granulocytes % 0.6 % (0-4); Lymphocytes # 0.5 K/mcL (0.6-4.6); Mean Corpuscular HGB Conc 35.5 g/dL (31.6-35.5); Mean Corpuscular Hemoglobin 30.4 pg (28.0-33.3); Mean Corpuscular Volume 85.7 fL (83.0-100.0); Mean Platelet Volume 9.7 fL (9.4-12.4); Monocytes # 0.6 K/mcL (0.0-1.3); Neutrophils # 3.7 K/mcL (1.6-8.9); Platelet Count 194 K/mcL (140-400); Red Blood Count 3.42 M/mcL (4.19-5.50); Red Cell Distribution Width 13.6 % (11.5-14.5); Segmented Neutrophils % 74.4 %
[2022-04-14 07:10] LABS: BUN/Creatinine Ratio 20 (6-26); Blood Urea Nitrogen 24 mg/dL (8-23); Calcium 8.8 mg/dL (8.6-10.3); Carbon Dioxide 24 mEq/L (23-29); Chloride 102 mEq/L (98-107); Glucose 237 mg/dL (70-105); Magnesium 1.8 mg/dL (1.6-2.6); Osmolality,Calculated 292 (280-300); Potassium 4.2 mEq/L (3.5-5.1); Sodium 135 mEq/L (136-145); eGFR For African Americans > 60 (> 60); eGFR For Non-African Americans 59 (> 60)
[2022-04-14] MEDS: lisinopriL 5 MG TABLET PO SCH (08:23)
[2022-04-14] MEDS: Gabapentin 400 MG CAPSULE PO SCH ×4 (08:23→20:33)
[2022-04-14] MEDS: Insulin DETEMIR 100 UNIT/ML X5UNITS SUBQ SCH ×2 (08:46→20:34)
[2022-04-14] MEDS: Neosporin OINT 15 GM TUBE TP SCH (09:59)
[2022-04-14] MEDS: *HR* OxyCODONE/APAP 10/325 TABLET PO PRN ×2 (13:18→20:33)
[2022-04-14] MEDS: metroNIDAZOLE 500 MG TABLET PO SCH ×2 (15:12→20:33)
[2022-04-14] MEDS: DAPTOmycin 500 MG in 0.9 % Sodium Chloride 100 ML IVPB SCH (15:16)
[2022-04-14 19:01] LABS: Creatine Kinase 26 Units/L (30-223)
[2022-04-14] MEDS: Lactobacillus 1 EACH CAP.SPRINK PO SCH (20:33)
[2022-04-15] MEDS: Insulin LISPRO 300 UNITS/3 ML VIAL SUBQ SCH ×5 (00:19→23:59)
[2022-04-15] MEDS: Cefepime HCl 2,000 MG in 0.9 % Sodium Chloride Mini Bag 100 ML IVPB SCH ×4 (00:25→23:58)
[2022-04-15 02:16] LABS: Basophils % 0.7 %; Eosinophils # 0.3 K/mcL (0.0-0.6); Eosinophils % 7.8 %; Hematocrit 27.6 % (37.5-50.1); Hemoglobin 9.7 g/dL (12.9-16.9); Immature Granulocytes % 0.7 % (0-4); Lymphocytes # 0.7 K/mcL (0.6-4.6); Lymphocytes % 15.3 %; Mean Corpuscular HGB Conc 35.1 g/dL (31.6-35.5); Mean Corpuscular Hemoglobin 30.5 pg (28.0-33.3); Mean Corpuscular Volume 86.8 fL (83.0-100.0); Mean Platelet Volume 9.5 fL (9.4-12.4); Monocytes # 0.4 K/mcL (0.0-1.3); Monocytes % 9.6 %; Neutrophils # 2.9 K/mcL (1.6-8.9); Platelet Count 185 K/mcL (140-400); Red Blood Count 3.18 M/mcL (4.19-5.50); Red Cell Distribution Width 13.7 % (11.5-14.5); Segmented Neutrophils % 65.9 %; White Blood Count 4.4 K/mcL (4.3-11.1)
[2022-04-15 02:40] LABS: BUN/Creatinine Ratio 19 (6-26); Blood Urea Nitrogen 21 mg/dL (8-23); Calcium 8.7 mg/dL (8.6-10.3); Carbon Dioxide 25 mEq/L (23-29); Chloride 102 mEq/L (98-107); Glucose 251 mg/dL (70-105); Magnesium 1.6 mg/dL (1.6-2.6); Osmolality,Calculated 291 (280-300); Potassium 3.7 mEq/L (3.5-5.1); Sodium 135 mEq/L (136-145); eGFR For African Americans > 60 (> 60); eGFR For Non-African Americans > 60 (> 60)
[2022-04-15] MEDS: *HR* OxyCODONE/APAP 10/325 TABLET PO PRN ×2 (05:33→21:23)
[2022-04-15] MEDS: Acetaminophen 325 MG TABLET PO PRN (08:35)
[2022-04-15] MEDS: metroNIDAZOLE 500 MG TABLET PO SCH ×3 (08:35→21:23)
[2022-04-15] MEDS: Gabapentin 400 MG CAPSULE PO SCH ×4 (08:36→21:22)
[2022-04-15] MEDS: lisinopriL 5 MG TABLET PO SCH (08:36)
[2022-04-15] MEDS: Lactobacillus 1 EACH CAP.SPRINK PO SCH ×2 (08:36→21:23)
[2022-04-15] MEDS: Insulin DETEMIR 100 UNIT/ML X5UNITS SUBQ SCH ×2 (08:43→21:23)
[2022-04-15] MEDS: Neosporin OINT 15 GM TUBE TP SCH (11:48)
[2022-04-15] MEDS: DAPTOmycin 500 MG in 0.9 % Sodium Chloride 100 ML IVPB SCH (19:28)
[2022-04-16] MEDS: Insulin LISPRO 300 UNITS/3 ML VIAL SUBQ SCH ×3 (06:00→17:44)
[2022-04-16] MEDS: *HR* OxyCODONE/APAP 10/325 TABLET PO PRN ×3 (06:04→19:22)
[2022-04-16] MEDS: Cefepime HCl 2,000 MG in 0.9 % Sodium Chloride Mini Bag 100 ML IVPB SCH (07:44)
[2022-04-16] MEDS: Lactobacillus 1 EACH CAP.SPRINK PO SCH ×2 (07:45→20:10)
[2022-04-16] MEDS: Gabapentin 400 MG CAPSULE PO SCH ×4 (07:45→20:10)
[2022-04-16] MEDS: lisinopriL 5 MG TABLET PO SCH (07:45)
[2022-04-16] MEDS: metroNIDAZOLE 500 MG TABLET PO SCH ×3 (07:45→20:10)
[2022-04-16] MEDS: Acetaminophen 325 MG TABLET PO PRN (08:06)
[2022-04-16] MEDS: Insulin DETEMIR 100 UNIT/ML X5UNITS SUBQ SCH ×2 (08:07→20:10)
[2022-04-16] MEDS: Neosporin OINT 15 GM TUBE TP SCH (15:05)
[2022-04-16] MEDS: DAPTOmycin 500 MG in 0.9 % Sodium Chloride 100 ML IVPB SCH (15:19)
[2022-04-17] MEDS: Insulin LISPRO 300 UNITS/3 ML VIAL SUBQ SCH ×3 (00:06→12:09)
[2022-04-17] MEDS: *HR* OxyCODONE/APAP 10/325 TABLET PO PRN ×2 (05:09→12:09)
[2022-04-17 09:27] VITALS: BP 125/90; PULSE 85; TEMP 98; O2SAT 97
[2022-04-17] MEDS ORDERED: Lidocaine -MPF 2% 5 ML VIAL ONE (09:31)
[2022-04-17] MEDS ORDERED: *HR* Midazolam HCl 2 MG/2 ML VIAL ONE (09:31)
[2022-04-17] MEDS ORDERED: *HR* FentaNYL (PF) 100 MCG/2 ML VIAL ONE (09:31)
[2022-04-17] MEDS ORDERED: Ondansetron 4 MG/2 ML VIAL ONE (09:31)
[2022-04-17] MEDS: Lactobacillus 1 EACH CAP.SPRINK PO SCH (12:08)
[2022-04-17] MEDS: lisinopriL 5 MG TABLET PO SCH (12:08)
[2022-04-17] MEDS: Gabapentin 400 MG CAPSULE PO SCH ×3 (12:08→15:44)
[2022-04-17] MEDS: Insulin DETEMIR 100 UNIT/ML X5UNITS SUBQ SCH (12:09)
[2022-04-17] MEDS: metroNIDAZOLE 500 MG TABLET PO SCH ×2 (12:09→15:44)
[2022-04-17] MEDS: DAPTOmycin 500 MG in 0.9 % Sodium Chloride 100 ML IVPB SCH (15:44)
== END 2022-04-17 17:27 | disposition home health service (06) | DRG 854 ==
LOC: 4WAOSI 21:24 → SUATTDRO 21:24
PROVIDERS: ADMIT Family Medicine; ATTEND Pharmacist